=== PATIENT | female | born 1965 | race Caucasian/White ===

== ENCOUNTER 2016-10-04 02:02 | Emergency (ER) | payer BC, SELFPAY ==
--- NOTE | 2016-10-10 07:41 | ER ---
ADMIT: 10/04/2016 RM/LOC: ER [facility] MR#: [id number] [facility] [address], [place] [id number] JARRED WITT [address] [place] [id number] Emergency Room Report SEX: F AGE: 51 : 1965 DATE: 10/04/2016 TIME: 0202. Please refer to my T-sheet for complete H and P. HISTORY OF PRESENT ILLNESS: Briefly, the patient is a 51-year-old, who comes in with abdominal pain, 3 to 4 days, worse with foods, up in the epigastric. She feels bloated. Here for evaluation. PHYSICAL EXAMINATION: VITAL SIGNS: Vital signs are stable. HEENT: Grossly normal. ABDOMEN: Tender in the epigastric. Really nonsurgical abdomen. EMERGENCY DEPARTMENT COURSE: CBC was normal except hemoglobin 9, her last hemoglobin was years ago, on her record it was 10.8, so she has had a history of anemia. Chemistry was normal except glucose 139. Lipase normal. UA normal. I gave her Zofran 4 mg IV, morphine 2 IV, and Protonix 40 IV. Her pain was completely resolved. She felt much better. I had a long discussion with her. She was ready for discharge. ASSESSMENT: 1. Acute abdominal pain, resolved with above treatment. 2. Gastritis. 3. Anemia. PLAN: Zantac 150 mg a day p.r.n. Return if worse. Multivitamin over-the- counter with iron. Follow up with Shira Amaya this week. Dileep Hays MD/ jose alfredo JOB #: [id number] CC: Dileep Hays MD, Attending Physician Shira Amaya, Family Physician
== END 2016-10-04 04:05 | disposition home or self-care (01) ==
LOC: ER 02:02
DX: K29.70 Gastritis, unspecified, without bleeding (principal); D64.9 Anemia, unspecified; Z90.710 Acquired absence of both cervix and uterus